=== PATIENT | female | born 1980 | race African-American/Black ===

== ENCOUNTER 2020-03-03 20:58 | Observation (INO) ==
[2020-03-03 22:26] LABS: Basophils % 0.3 % (0.0-0.8); Hematocrit 37.7 VOL% (35.7-47.0); Hemoglobin 11.3 GM/DL (12.0-16.0); Immature Granulocytes % 0.8 %; Immature Granulocytes Absolute 0.08 #; Lymphocytes # 1.2 10*3/uL (1.4-4.0); Lymphocytes % 11.9 % (21.3-54.2); Mean Corpuscular Volume 84.2 FL (87-102); Mean Platelet Volume 10.3 FL (9.6-12.0); Monocytes % 0.9 % (1.7-12.7); Neutrophils % 86.1 % (38.7-73.9); Platelet Count 403 T/CUMM (130-400); Red Blood Count 4.48 MC/CUMM (3.8-5.5); Red Cell Distribution Width 15.9 % (9.3-17.3); White Blood Count 10.2 T/CUMM (4-12)
[2020-03-03 22:47] LABS: Alanine Aminotransferase 17 U/L (13-56); Albumin 3.5 G/DL (3.4-5.0); Alkaline Phosphatase 89 U/L (45-117); Aspartate Amino Transferase 8 U/L (0-37); Bilirubin,Total < 0.39 MG/DL (0.2-1.0); Blood Urea Nitrogen 11 MG/DL (7-18); Calcium 9.4 MG/DL (8.5-10.1); Estimated Glom Filtration Rate 110 ML/MIN; Glucose 152 MG/DL (74-106); Total Protein 8.4 G/DL (6.4-8.3)
[2020-03-03] MEDS ORDERED: LABETALOL 20 MG/4 ML SYRINGE IV STA (23:04)
[2020-03-03] MEDS ORDERED: ASPIRIN EC 325 MG TABLET PO STA (23:04)
[2020-03-04] MEDS ORDERED: GLUCAGON 1 MG VIAL IM PRN ×2 (01:46→01:53)
[2020-03-04] MEDS ORDERED: DEXTROSE 50% 25 GM/50 ML VIAL IV PRN (01:46)
[2020-03-04] MEDS ORDERED: DEXTROSE 10% 250 ML BAG IV PRN (01:53)
[2020-03-04] MEDS ORDERED: PIPERACILLIN/TAZOBACTAM 3,375 MG in SODIUM CHLORIDE 0.9% 100 ML IV STA (01:56)
[2020-03-04 06:52] LABS: Basophils % 0.2 % (0.0-0.8); Hematocrit 34.4 VOL% (35.7-47.0); Hemoglobin 10.4 GM/DL (12.0-16.0); Immature Granulocytes % 0.7 %; Immature Granulocytes Absolute 0.08 #; Lymphocytes # 1.8 10*3/uL (1.4-4.0); Lymphocytes % 14.8 % (21.3-54.2); Mean Corpuscular HGB Conc 30.2 GM/DL (32-36); Mean Corpuscular Volume 84.1 FL (87-102); Monocytes % 3.2 % (1.7-12.7); Neutrophils % 81.1 % (38.7-73.9); Platelet Count 370 T/CUMM (130-400); Red Blood Count 4.09 MC/CUMM (3.8-5.5)
[2020-03-04 07:07] LABS: Alanine Aminotransferase 13 U/L (13-56); Albumin 3.2 G/DL (3.4-5.0); Alkaline Phosphatase 77 U/L (45-117); Aspartate Amino Transferase 8 U/L (0-37); Bilirubin,Total < 0.39 MG/DL (0.2-1.0); Blood Urea Nitrogen 9 MG/DL (7-18); Estimated Glom Filtration Rate 110 ML/MIN; Ferritin 8.5 ng/ml (8-252); Glucose 114 MG/DL (74-106); Osmolality,Calculated 272.8 MOS/KG (273-304); Total Protein 7.7 G/DL (6.4-8.3)
[2020-03-04] MEDS ORDERED: cefTRIAXone 1,000 MG VIAL ONE (07:51)
[2020-03-04] MEDS: INSULIN REGULAR 100 UNIT/ML SUBCUT SCH ×4 (08:03→20:53)
[2020-03-04] MEDS: ALBUTEROL INHALER 18 GM INH SCH ×3 (08:05→20:02)
[2020-03-04] MEDS: ENOXAPARIN 40 MG/0.4 ML SYRINGE SUBCUT SCH (08:05)
[2020-03-04] MEDS: cefTRIAXone 1,000 MG in SYRINGE 1 EACH IV SCH (08:48)
[2020-03-04] MEDS ORDERED: PANTOPRAZOLE 40 MG TABLET PO SCH (09:00)
[2020-03-04] MEDS: ZINC SULFATE 220 MG CAPSULE PO SCH (09:45)
[2020-03-04] MEDS ORDERED: AZITHROMYCIN INJ 500 MG in SODIUM CHLORIDE 0.9% 250 ML IV SCH (10:00)
[2020-03-04] MEDS: ONDANSETRON 4 MG/2 ML VIAL IV PRN (12:38)
[2020-03-04] MEDS: ACETAMINOPHEN 325 MG TABLET PO PRN (20:54)
[2020-03-05] MEDS: ALBUTEROL INHALER 18 GM INH SCH ×4 (00:38→20:41)
[2020-03-05] MEDS: INSULIN REGULAR 100 UNIT/ML SUBCUT SCH ×4 (09:04→20:42)
[2020-03-05] MEDS: cefTRIAXone 1,000 MG in SYRINGE 1 EACH IV SCH (09:05)
[2020-03-05] MEDS: ENOXAPARIN 40 MG/0.4 ML SYRINGE SUBCUT SCH (09:05)
[2020-03-05] MEDS: AZITHROMYCIN 250 MG TABLET PO SCH (09:05)
[2020-03-06] MEDS: ALBUTEROL INHALER 18 GM INH SCH ×4 (00:02→20:40)
[2020-03-06 06:06] LABS: Basophils # 0.1 10*3/uL (0.0-0.2); Basophils % 0.5 % (0.0-0.8); Eosinophils # 0.2 10*3/uL (0.0-0.87); Eosinophils % 1.9 % (0.00-10.9); Hematocrit 33.4 VOL% (35.7-47.0); Hemoglobin 10.1 GM/DL (12.0-16.0); Immature Granulocytes % 0.4 %; Immature Granulocytes Absolute 0.04 #; Lymphocytes # 4.1 10*3/uL (1.4-4.0); Lymphocytes % 40.6 % (21.3-54.2); Mean Corpuscular HGB Conc 30.2 GM/DL (32-36); Mean Corpuscular Volume 85.4 FL (87-102); Monocytes % 5.6 % (1.7-12.7); Platelet Count 324 T/CUMM (130-400); Red Blood Count 3.91 MC/CUMM (3.8-5.5); Red Cell Distribution Width 16.2 % (9.3-17.3)
[2020-03-06 06:10] LABS: Calcium 8.3 MG/DL (8.5-10.1)
[2020-03-06 08:14] LABS: Atypical Lymphocytes Few; Eosinophils 1 % (0-10); Lymphocytes 43 % (20-55); Platelet Estimate Normal; Segmented Neutrophils 52 % (50-85); Total Cells Counted 100
[2020-03-06 08:15] LABS: Anisocytosis 1+; Macrocytosis Slight
[2020-03-06] MEDS: ENOXAPARIN 40 MG/0.4 ML SYRINGE SUBCUT SCH (08:57)
[2020-03-06] MEDS: INSULIN REGULAR 100 UNIT/ML SUBCUT SCH ×4 (08:57→20:40)
[2020-03-06] MEDS: ACETAMINOPHEN 325 MG TABLET PO PRN (08:58)
[2020-03-06] MEDS: AZITHROMYCIN 250 MG TABLET PO SCH (08:58)
[2020-03-06] MEDS: ZINC SULFATE 220 MG CAPSULE PO SCH (08:58)
[2020-03-06] MEDS: cefTRIAXone 1,000 MG in SYRINGE 1 EACH IV SCH (08:58)
[2020-03-06] MEDS: ONDANSETRON 4 MG/2 ML VIAL IV PRN ×3 (10:56→21:30)
[2020-03-07] MEDS: ALBUTEROL INHALER 18 GM INH SCH ×2 (01:17→06:22)
[2020-03-07 06:10] LABS: Basophils # 0.1 10*3/uL (0.0-0.2); Basophils % 0.5 % (0.0-0.8); Eosinophils # 0.3 10*3/uL (0.0-0.87); Eosinophils % 2.8 % (0.00-10.9); Immature Granulocytes % 0.4 %; Immature Granulocytes Absolute 0.04 #; Lymphocytes % 31.7 % (21.3-54.2); Mean Corpuscular HGB Conc 28.4 GM/DL (32-36); Mean Corpuscular Volume 88.9 FL (87-102); Monocytes % 6.3 % (1.7-12.7); Neutrophils % 58.3 % (38.7-73.9); Platelet Count 314 T/CUMM (130-400); Red Blood Count 3.69 MC/CUMM (3.8-5.5); Red Cell Distribution Width 16.2 % (9.3-17.3); White Blood Count 9.5 T/CUMM (4-12)
[2020-03-07 06:28] LABS: Calcium 8.4 MG/DL (8.5-10.1); Osmolality,Calculated 266.1 MOS/KG (273-304)
[2020-03-07 06:43] LABS: Hemoglobin 9.5 GM/DL (12.0-16.0)
[2020-03-07 06:58] LABS: Anisocytosis 1+; Platelet Estimate Normal
[2020-03-07 06:59] LABS: Macrocytosis 1+
[2020-03-07] MEDS: INSULIN REGULAR 100 UNIT/ML SUBCUT SCH ×2 (07:53→11:52)
[2020-03-07] MEDS: cefTRIAXone 1,000 MG in SYRINGE 1 EACH IV SCH (08:01)
[2020-03-07] MEDS: ENOXAPARIN 40 MG/0.4 ML SYRINGE SUBCUT SCH (08:01)
[2020-03-07] MEDS: AZITHROMYCIN 250 MG TABLET PO SCH (08:01)
[2020-03-07 12:14] VITALS: BP 129/105
== END 2020-03-07 12:51 | disposition home or self-care (01) ==
LOC: N.EDINP 20:58 → N.ED 20:58 → SUATTDRO 03-04 02:07 → N.2E 03-04 10:30
PROVIDERS: ADMIT Internal Medicine; ATTEND Hospitalist

== ENCOUNTER 2021-02-22 07:59 | Inpatient (IN) ==
[2021-02-22] MEDS ORDERED: METOPROLOL TARTRATE 5 MG/5 ML VIAL IV STA ×3 (08:29→09:49)
[2021-02-22] MEDS ORDERED: METOPROLOL TARTRATE 5 MG/5 ML VIAL IV ONE (08:30)
[2021-02-22 09:21] LABS: Basophils # 0.1 10*3/uL (0.0-0.2); Basophils % 0.6 % (0.0-0.8); Eosinophils # 0.2 10*3/uL (0.0-0.87); Eosinophils % 2.2 % (0.00-10.9); Hematocrit 35.2 VOL% (35.7-47.0); Hemoglobin 10.4 GM/DL (12.0-16.0); Immature Granulocytes % 0.2 %; Immature Granulocytes Absolute 0.02 #; Lymphocytes # 3.2 10*3/uL (1.4-4.0); Lymphocytes % 38.6 % (21.3-54.2); Mean Corpuscular HGB Conc 29.5 GM/DL (32-36); Mean Corpuscular Volume 85.4 FL (87-102); Mean Platelet Volume 11.2 FL (9.6-12.0); Neutrophils % 49.4 % (38.7-73.9); Platelet Count 382 T/CUMM (130-400); Red Blood Count 4.12 MC/CUMM (3.8-5.5); Red Cell Distribution Width 16.2 % (9.3-17.3); White Blood Count 8.2 T/CUMM (4-12)
[2021-02-22 09:32] LABS: Amorphous Crystals,Urine Few /HPF (Few); Bilirubin,Urine Negative (Negative); Blood, Urine Negative (Negative); Glucose,Urine (UA) Negative (Negative); Ketones,Urine Negative (Negative); Mucus,Urine Occasional /LPF (Occasional); Nitrite,Urine Negative (Negative); Protein,Urine 30 MG/DL; RBC,Urine 1 /HPF (0-4); Squamous Epithelial Cell,Urine Moderate /HPF (0-10); Urine Appearance Slightly Hazy (Clear); Urine Color Yellow (Yellow); Urine Specific Gravity 1.024 (1.001-1.035); Urine Urobilinogen < 2.0 EU/DL (0.2-1.0)
[2021-02-22 09:40] LABS: Alanine Aminotransferase 15 U/L (13-56); Albumin 3.7 G/DL (3.4-5.0); Alkaline Phosphatase 89 U/L (45-117); Aspartate Amino Transferase 11 U/L (0-37); Bilirubin,Total < 0.39 MG/DL (0.2-1.0); Blood Urea Nitrogen 10 MG/DL (7-18); Carbon Dioxide 25 MMOL/L (21-32); Estimated Glom Filtration Rate 103 ML/MIN; Glucose 93 MG/DL (74-106); Sodium 143 MMOL/L (136-145); Total Protein 7.7 G/DL (6.4-8.2)
[2021-02-22 09:41] LABS: Hypochromasia 2+; Microcytosis 1+; Platelet Estimate Normal
[2021-02-22 09:45] LABS: Barbiturates Screen,Urine Negative (Negative); Benzodiazepines Screen,Urine Negative (Negative); Cannabinoid Screen,Urine Negative (Negative); Opiate Screen,Urine Negative (Negative); Phencyclidine Screen,Urine Negative (Negative)
[2021-02-22] MEDS ORDERED: ONDANSETRON 4 MG/2 ML VIAL ONE (09:48)
[2021-02-22] MEDS ORDERED: HYDROmorphone 2 MG/1 ML VIAL ONE (09:49)
[2021-02-22] MEDS ORDERED: ONDANSETRON 4 MG/2 ML VIAL IV STA (09:49)
[2021-02-22] MEDS ORDERED: HYDROmorphone 2 MG/1 ML VIAL IV STA (09:49)
[2021-02-22] MEDS ORDERED: hydrALAZINE 20 MG/1 ML VIAL IV STA (11:00)
[2021-02-22] MEDS ORDERED: hydrALAZINE 20 MG/1 ML VIAL ONE (11:03)
[2021-02-22] MEDS ORDERED: ZALEPLON 5 MG CAPSULE PO PRN (12:05)
[2021-02-22] MEDS ORDERED: hydrALAZINE 20 MG/1 ML VIAL IV PRN ×2 (12:08→18:39)
[2021-02-22] MEDS: ENOXAPARIN 40 MG/0.4 ML SYRINGE SUBCUT SCH (12:34)
[2021-02-22] MEDS: METOPROLOL SUCCINATE XL 100 MG TABLET PO SCH (12:34)
[2021-02-22] MEDS: ONDANSETRON 4 MG/2 ML VIAL IV PRN ×4 (12:36→21:19)
[2021-02-22] MEDS: ACETAMINOPHEN 325 MG TABLET PO PRN (13:35)
[2021-02-22] MEDS ORDERED: cloNIDine 0.1 MG TABLET PO ONE (17:32)
[2021-02-22] MEDS ORDERED: cloNIDine 0.1 MG TABLET PO PRN (17:32)
[2021-02-22] MEDS: MORPHINE 4 MG/1 ML VIAL IV PRN (17:43)
[2021-02-22] MEDS ORDERED: MORPHINE 4 MG/1 ML VIAL IV ONE (22:05)
[2021-02-22] MEDS ORDERED: MAGNESIUM CITRATE 300 ML BOTTLE PO ONE (22:19)
[2021-02-23] MEDS: ONDANSETRON 4 MG/2 ML VIAL IV PRN (04:50)
[2021-02-23] MEDS: MORPHINE 4 MG/1 ML VIAL IV PRN (04:51)
[2021-02-23 06:54] LABS: Basophils % 0.3 % (0.0-0.8); Eosinophils % 0.1 % (0.00-10.9); Hematocrit 31.2 VOL% (35.7-47.0); Hemoglobin 9.2 GM/DL (12.0-16.0); Immature Granulocytes % 0.4 %; Immature Granulocytes Absolute 0.03 #; Lymphocytes # 2.4 10*3/uL (1.4-4.0); Mean Corpuscular HGB Conc 29.5 GM/DL (32-36); Mean Platelet Volume 10.8 FL (9.6-12.0); Monocytes % 6.4 % (1.7-12.7); Neutrophils % 60.8 % (38.7-73.9); Platelet Count 351 T/CUMM (130-400); Red Blood Count 3.67 MC/CUMM (3.8-5.5); Red Cell Distribution Width 16.1 % (9.3-17.3); White Blood Count 7.4 T/CUMM (4-12)
[2021-02-23 07:22] LABS: Albumin 3.1 G/DL (3.4-5.0); Bilirubin,Total 0.8 MG/DL (0.2-1.0); Calcium 8.5 MG/DL (8.5-10.1); Osmolality,Calculated 274.5 MOS/KG (273-304); Potassium 3.5 MMOL/L (3.5-5.1); Risk Ratio 3.39; Thyroid Stimulating Hormone 0.673 uIU/ml (0.358-3.74); VLDL CHOLESTEROL 14.6 MG/DL
[2021-02-23] MEDS: METOPROLOL SUCCINATE XL 100 MG TABLET PO SCH (08:56)
[2021-02-23] MEDS ORDERED: LOSARTAN 50 MG TABLET PO SCH (09:00)
[2021-02-23] MEDS ORDERED: PANTOPRAZOLE 40 MG TABLET PO SCH (09:00)
[2021-02-23] MEDS: ACETAMINOPHEN 325 MG TABLET PO PRN (09:01)
[2021-02-23] MEDS ORDERED: BUTALBITAL/ACETAMIN/CAFFEINE 50-325-40 MG TABLET PO ONE (10:09)
[2021-02-23 11:47] VITALS: BP 123/57
[2021-02-23] MEDS: ENOXAPARIN 40 MG/0.4 ML SYRINGE SUBCUT SCH (12:01)
[2021-02-23] MEDS ORDERED: cloNIDine 0.1 MG TABLET PO SCH (21:00)
[2021-02-24] MEDS ORDERED: POLYETHYLENE GLYCOL POWDER 17 GM PACK PO SCH (09:00)
== END 2021-02-23 15:51 | disposition home or self-care (01) | DRG 305 ==
LOC: EDUNIT# → EDBD → N.ED 07:59 → N.EDINP 12:05 → SUATTDRO 12:05 → N.EDINP 13:08 → N.TELES 13:21
PROVIDERS: ADMIT Family Medicine; ATTEND Internal Medicine Geriatric Medicine

== ENCOUNTER 2021-04-18 09:07 | Inpatient (IN) ==
[2021-04-18] MEDS ORDERED: LABETALOL 20 MG/4 ML SYRINGE IV STA (10:02)
[2021-04-18 10:52] LABS: Alanine Aminotransferase 16 U/L (13-56); Albumin 3.8 G/DL (3.4-5.0); Alkaline Phosphatase 87 U/L (45-117); Aspartate Amino Transferase 13 U/L (0-37); Bilirubin,Total < 0.39 MG/DL (0.20-1.00); Blood Urea Nitrogen 9 MG/DL (7-18); Carbon Dioxide 24 MMOL/L (21-32); Estimated Glom Filtration Rate 130 ML/MIN; Glucose 91 MG/DL (74-106); Osmolality,Calculated 273.7 MOS/KG (273-304); Potassium 4.2 MMOL/L (3.5-5.1); Sodium 138 MMOL/L (136-145)
[2021-04-18] MEDS ORDERED: GLUCAGON 1 MG VIAL IM PRN ×2 (11:15)
[2021-04-18] MEDS ORDERED: DEXTROSE 50% 25 GM/50 ML VIAL IV PRN ×2 (11:15)
[2021-04-18] MEDS ORDERED: LABETALOL INJ 200 MG in SODIUM CHLORIDE 0.9% 160 ML IV SCH ×3 (11:30→15:55)
[2021-04-18] MEDS: INSULIN LISPRO 100 UNIT/ML SUBCUT SCH ×3 (12:12→21:31)
[2021-04-18] MEDS: ONDANSETRON 4 MG/2 ML VIAL IV PRN ×2 (12:20→23:42)
[2021-04-18 12:39] LABS: Basophils % 0.3 % (0.0-0.8); Eosinophils # 0.2 10*3/uL (0.0-0.87); Eosinophils % 2.2 % (0.00-10.9); Hematocrit 34.3 VOL% (35.7-47.0); Hemoglobin 10.1 GM/DL (12.0-16.0); Immature Granulocytes % 0.5 %; Immature Granulocytes Absolute 0.04 #; Lymphocytes # 2.9 10*3/uL (1.4-4.0); Lymphocytes % 33.3 % (21.3-54.2); Mean Corpuscular HGB Conc 29.4 GM/DL (32-36); Mean Corpuscular Volume 84.7 FL (87-102); Mean Platelet Volume 10.1 FL (9.6-12.0); Monocytes % 6.3 % (1.7-12.7); Neutrophils % 57.4 % (38.7-73.9); Platelet Count 371 T/CUMM (130-400); Red Blood Count 4.05 MC/CUMM (3.8-5.5); Red Cell Distribution Width 16.4 % (9.3-17.3); White Blood Count 8.6 T/CUMM (4-12)
[2021-04-18] MEDS ORDERED: ACETAMINOPHEN 325 MG TABLET PO ONE (14:20)
[2021-04-18] MEDS ORDERED: PROMETHAZINE 25 MG/1 ML VIAL ONE (16:08)
[2021-04-18] MEDS ORDERED: PROMETHAZINE INJ 25 MG in SODIUM CHLORIDE 0.9% 50 ML IV PRN (16:20)
[2021-04-18] MEDS: ENOXAPARIN 40 MG/0.4 ML SYRINGE SUBCUT SCH (17:00)
[2021-04-18] MEDS: hydroCHLOROthiazide 25 MG TABLET PO SCH (20:50)
[2021-04-18] MEDS: cloNIDine 0.1 MG TABLET PO SCH (21:35)
[2021-04-18] MEDS: DOXAZOSIN 4 MG TABLET PO SCH (21:36)
[2021-04-18] MEDS: ISOSORBIDE MONONITRATE 60 MG TABLET PO SCH (21:36)
[2021-04-18] MEDS: MORPHINE 2 MG/1 ML SYRINGE IV PRN (23:40)
[2021-04-19 06:14] LABS: Basophils % 0.5 % (0.0-0.8); Eosinophils # 0.2 10*3/uL (0.0-0.87); Eosinophils % 2.2 % (0.00-10.9); Hemoglobin 9.2 GM/DL (12.0-16.0); Immature Granulocytes % 0.1 %; Immature Granulocytes Absolute 0.01 #; Lymphocytes # 2.8 10*3/uL (1.4-4.0); Lymphocytes % 37.1 % (21.3-54.2); Mean Corpuscular HGB Conc 29.7 GM/DL (32-36); Mean Corpuscular Volume 84.5 FL (87-102); Mean Platelet Volume 9.5 FL (9.6-12.0); Monocytes % 7.5 % (1.7-12.7); Neutrophils % 52.6 % (38.7-73.9); Platelet Count 334 T/CUMM (130-400); Red Blood Count 3.67 MC/CUMM (3.8-5.5); Red Cell Distribution Width 16.6 % (9.3-17.3); White Blood Count 7.4 T/CUMM (4-12)
[2021-04-19] MEDS: MORPHINE 2 MG/1 ML SYRINGE IV PRN ×3 (06:36→21:38)
[2021-04-19 06:52] LABS: Calcium 8.4 MG/DL (8.5-10.1); Osmolality,Calculated 281.1 MOS/KG (273-304); Potassium 3.9 MMOL/L (3.5-5.1); Risk Ratio 3.64; Thyroid Stimulating Hormone 2.48 uIU/ml (0.358-3.74); VLDL Cholesterol 14.8 MG/DL
[2021-04-19] MEDS: INSULIN LISPRO 100 UNIT/ML SUBCUT SCH ×4 (08:46→20:43)
[2021-04-19] MEDS: DOXAZOSIN 4 MG TABLET PO SCH ×2 (10:48→21:37)
[2021-04-19] MEDS: cloNIDine 0.1 MG TABLET PO SCH ×2 (10:48→21:37)
[2021-04-19] MEDS: PANTOPRAZOLE 40 MG TABLET PO SCH (10:49)
[2021-04-19] MEDS: LOSARTAN 50 MG TABLET PO SCH (10:49)
[2021-04-19] MEDS: FERROUS SULFATE 325 MG TABLET PO SCH (10:49)
[2021-04-19] MEDS: hydroCHLOROthiazide 25 MG TABLET PO SCH ×2 (10:49→21:37)
[2021-04-19] MEDS: METOPROLOL SUCCINATE XL 100 MG TABLET PO SCH (10:49)
[2021-04-19] MEDS: ONDANSETRON 4 MG/2 ML VIAL IV PRN (12:09)
[2021-04-19] MEDS: ENOXAPARIN 40 MG/0.4 ML SYRINGE SUBCUT SCH (12:37)
[2021-04-19] MEDS: ISOSORBIDE MONONITRATE 60 MG TABLET PO SCH (21:37)
[2021-04-20] MEDS: LOSARTAN 50 MG TABLET PO SCH (09:18)
[2021-04-20] MEDS: cloNIDine 0.1 MG TABLET PO SCH (09:18)
[2021-04-20] MEDS: FERROUS SULFATE 325 MG TABLET PO SCH (09:19)
[2021-04-20] MEDS: DOXAZOSIN 4 MG TABLET PO SCH (09:19)
[2021-04-20] MEDS: hydroCHLOROthiazide 25 MG TABLET PO SCH (09:19)
[2021-04-20] MEDS: METOPROLOL SUCCINATE XL 100 MG TABLET PO SCH (09:19)
[2021-04-20] MEDS: PANTOPRAZOLE 40 MG TABLET PO SCH (09:19)
[2021-04-20] MEDS: INSULIN LISPRO 100 UNIT/ML SUBCUT SCH ×2 (10:33→13:38)
[2021-04-20 12:41] VITALS: BP 117/60
[2021-04-20] MEDS: ENOXAPARIN 40 MG/0.4 ML SYRINGE SUBCUT SCH (13:38)
== END 2021-04-20 13:54 | disposition home or self-care (01) | DRG 305 ==
LOC: N.ED 09:07 → N.EDINP 11:15 → SUATTDRO 11:15 → N.EDINP 22:04 → N.TELES 22:12
PROVIDERS: ADMIT Internal Medicine; ATTEND Internal Medicine Geriatric Medicine